=== PATIENT | female | born 1995 | race Caucasian/White ===

== ENCOUNTER 2016-12-06 06:48 | Emergency (ER) | payer OTHER ==
[~2016-12-06] VITALS: Ht 162.6 cm; Wt 72.7 kg
[~2016-12-06 06:48] MED LIST: ASCO500T8 PO; Docusate Sodium PO; FERR-74 PO; FLUC150T48 PO; Ibuprofen PO; NITR100 PO; Oxycodone/Acetaminophen PO
[2016-12-06 06:54] VITALS: BP 128/73; PULSE 81; RESP 16; O2SAT 100
[2016-12-06] MEDS ORDERED: Ondansetron 2 mg/mL 2 mL Inj IVPUSH PRN (07:10)
[2016-12-06] MEDS ORDERED: Ketorolac 15 mg/mL Inj IVPUSH ONE (07:10)
[2016-12-06] MEDS ORDERED: 0.9% Sodium Chloride 1,000 ML IV ONE (07:10)
[2016-12-06 07:22] LABS: BASOPHILS % (AUTO) 0.2 % (0-3); EOSINOPHILS % (AUTO) 0.6 % (0-5); MONOCYTES % (AUTO) 9.8 % (4-12); Mean Corpuscular Hemoglobin 28.5 pg (27.0-35.0); Mean Corpuscular Volume 86.8 fL (81-100); NEUTROPHILS % (AUTO) 67.6 % (40-74); Platelet Count 198 bil/L (150-400)
--- NOTE | 2016-12-06 07:43 | ED.REPORT ---
HPI-Abd Pain F Under 38 Date of Service Dec 06, 2016 ED Provider: Francesco Huerta DO History of Present Illness: Ms. Yazmin Hughes is a pleasant 21-year-old lady with a past medical history significant for section 2 years ago, healthy and currently taking no medications, who presents to [facility] emergency Department with a 4 hour acute onset of severe 10 out of 10 sharp constant flank pain bilaterally that extends into her abdomen as well as associated chills. She reports a 2-1/2 day history of dysuria and urinary urgency and hesitancy and one-day history of mild hematuria. She denies fever, chest pain, shortness of breath, diarrhea, and abnormal vaginal discharge. She reports chills, nausea, bilateral flank pain, abdominal pain, dysuria, hematuria, bloating and mild constipation. She denies history of renal stones, and reports several episodes of bladder infections. Of note Ms. Hughes has been trying to conceive and reports significant pain and tenderness during intercourse for an unspecified amount of time, which she claims to just benefit because she wants to conceive, she has been off Depo-Provera for 3 months, and her date of last menstrual cycle was 10 days ago with heavier flow than usual. She is currently moved [facility] 6 months ago and currently does not have an [facility] physician that she sees, she had made an appointment last week but her physician canceled. Nursing Notes Stated Complaint: POSS KIDNEY STONE Chief Complaint: Female Abdominal Pain Nursing Notes Reviewed: Yes Allergies: Coded Allergies: No Known Allergies (Verified Allergy, Unknown, 02/20/16) Scheduled ([Docusate Sodium]) 100 MG CAPSULE 100 MG PO BID Ascorbic Acid (Vitamin C) 500 Mg Tablet 500 MG PO DAILYWM Cephalexin (Cephalexin) 500 Mg Capsule 500 MG PO BID Doxycycline Hyclate (Doxycycline Hyclate) 100 Mg Capsule 100 MG PO BID Ferrous Sulfate (Feosol) 325 Mg Tablet 325 MG PO DAILY Fluconazole (Diflucan) 150 Mg Tablet 150 MG PO ONCE Nitrofurantoin Monohyd/M-Cryst (MacroBid) 100 Mg Capsule 100 MG PO BID Scheduled PRN ([Oxycodone/Acetaminophen]) 1 TAB TABLET 1-2 TAB PO Q4-6H PRN PRN For Pain ([Ibuprofen]) 600 MG TABLET 800 MG PO Q8 PRN PRN For Pain General Time Seen by MD: 07:15 Chief Complaint Abdominal pain, Constipation, Dysuria, Flank pain right, Flank pain left, Nausea , Pelvic pain Past Medical History Past Medical History She denies any health problems Not on any medications Past Surgical History Reports: Smoking History Never Smoker Social History Alcohol Use: "Social" Drug Use: Denies drug use Ambulatory Status Independent Review of Systems Review of Systems Note: A comprehensive review of systems was conducted with the patient and found to be negative except as above in the History of Present Illness. Physical Exam Physical Exam Notes: General: Young lady appearing of stated age sitting in bed grimacing in pain in acute distress. well-developed, well-nourished, appropriately interactive HEENT: Normocephalic, atraumatic. External ears without defect. Pupils equal, round, and reactive to light and accommodation. Anicteric sclerae, moist conjunctivae, and no lid lag. Oropharynx free of erythema and cobble stoning with moist mucosa. Neck: Supple with full range of motion. No jugular venous distension. No bruits. No lymphadenopathy or thyromegaly. Cardiovascular: Regular rate and rhythm with no murmurs, rubs, or gallops appreciated Pulmonary: Clear to auscultation bilaterally with no crackles, wheezes, or rhonchi. Normal respiratory effort with no use of accessory muscles. Abdomen: Bowel tones present. Soft, very mildly tender to palpation, nondistended. No hepatosplenomegaly or masses appreciated. Extremities: No clubbing, cyanosis, edema, or lymphadenopathy appreciated. Skin: Normal temperature, turgor, and texture; no rash, ulcers, or subcutaneous nodules appreciated. Musculoskeletal: Costovertebral angle tenderness to palpation bilaterally with positive Myron punch bilaterally. Neurological: Cranial nerves grossly intact. Normal muscle strength, tone, and bulk. Reflexes, coordination, and sensory function within normal limits. No known gait impairment. Psychiatric: Normal mood and affect. Alert and oriented to person, place, and time. Initial Vital Signs Vital Signs (First) Date Time Temp Pulse Resp B/P Pulse Ox O2 Delivery O2 Flow Rate FiO2 12/06/16 06:54 36.5 81 16 128/73 100 Room Air Interpretation & Diagnostics Lab Results Interpretation Result Diagram: 12/06/16 0710 12/06/16 0710 Test 12/06/16 06:50 12/06/16 07:10 Urine Color Yellow (YELLOW) Urine Appearance Slightly cloudy Urine pH 6.0 (5.0-8.0) Urine Specific [place] 1.025 (1.003-1.035) Urine Protein 100mg/dL (NEG,TRACE) Urine Glucose (UA) Negativemg/dL (NEGATIVE) Urine Ketones Negativemg/dL (NEGATIVE) Urine Occult Blood Large (NEGATIVE) Urine Nitrite Positive (NEGATIVE) Urine Bilirubin Negative (NEGATIVE) Urine Urobilinogen Normalmg/dL (NORMAL) Urine Leukocyte Esterase Moderate (NEGATIVE) Urine RBC 0-2/hpf (0-2) Urine WBC >50/hpf (0-5) Urine Epithelial Cells Occasional/hpf (NONE-MOD) Urine Crystals None seen (NONE SEEN) Urine Bacteria Moderate/hpf (NONE-FEW) Urine Hyaline Casts None/lpf (NONE) Urine Granular Casts None seen (NONE SEEN) Urine Waxy Casts None seen (NONE SEEN) Urine Red Blood Cell Casts None seen (NONE SEEN) Urine White Blood Cell Casts None seen (NONE SEEN) Urine Mucus None seen (None Seen) Urine Trichomonas None seen (NONE SEEN) Urine Yeast None (NONE SEEN) Urinalysis Comment None Urine Culture Reflexed Indicated Hold Urine Received (Received) White Blood Count 10.0th/mm3 (3.8-10.1) Red Blood Count 4.56mil/mm3 (3.90-5.20) Hemoglobin 13.0g/dL (12.0-15.6) Hematocrit 39.6% (35.0-46.0) Mean Corpuscular Volume 86.8fL (81-100) Mean Corpuscular Hemoglobin 28.5pg (27.0-35.0) Mean Corpuscular Hemoglobin Concent 32.8% (32.0-37.0) Red Cell Distribution Width 13.9% (12.3-15.4) Platelet Count 198bil/L (150-400) Neutrophils (%) (Auto) 67.6% (40-74) Lymphocytes (%) (Auto) 21.6% (14-46) Monocytes (%) (Auto) 9.8% (4-12) Eosinophils (%) (Auto) 0.6% (0-5) Basophils (%) (Auto) 0.2% (0-3) Sodium Level 140mEq/L (134-144) Potassium Level 4.3mEq/L (3.5-5.2) Chloride Level 106mEq/L (97-108) Carbon Dioxide Level 22mmol/L (18-29) Blood Urea Nitrogen 9mg/dL (6-20) Creatinine 0.71mg/dL (0.57-1.00) Estimat Glomerular Filtration Rate 146mL/min (>59) Glucose Level 93mg/dL (60-99) Calcium Level 9.2mg/dL (8.5-10.1) Total Bilirubin 0.9mg/dL (0.0-1.2) Aspartate Amino Transf (AST/SGOT) 29U/L (0-50) Alanine Aminotransferase (ALT/SGPT) 31U/L (0-32) Alkaline Phosphatase 68U/L (25-150) Total Protein 7.2g/dL (6.4-8.4) Albumin 4.2g/dL (3.4-5.0) Hold [place] Top Tube Received (Received) Re-Eval/Medical Decision Med Decision/Clinical Course Med Decision/Clinical Course: Ms. Yazmin Hughes is a pleasant 21-year-old lady with a past medical history significant for section 2 years ago, healthy and currently taking no medications, who presents to [facility] emergency Department with a 4 hour acute onset of severe 10 out of 10 sharp constant flank pain bilaterally that extends into her abdomen as well as associated chills. Differential diagnosis includes nephrolithiasis, pyelonephritis, cystitis, ovarian torsion, pelvic inflammatory disease, ectopic , GI tract obstruction. Patient's initial urine dip showed nitrites and large blood as well as a negative test. We have ordered a CBC and CMP to check for any inflammatory markers as well as a urinalysis with reflex culture. She was given 15 mg IV Toradol once and 4 mg IV Zofran every 4 hours as needed as well as 1 L bolus normal saline. A CT KUB was ordered and was negative for nephrolithiasis however showed prominent bladder wall thickening and adjacent inflammatory fat stranding as well as a possible adnexal cyst. Pelvic exam was positive for significant cervical wall motion tenderness and adnexal tenderness on the left, a wet mount prep was taken and showed only white blood cell cells present. Transvaginal pelvic ultrasound was ordered and official read is Ovarian cyst and not a Tubo-ovarian abscess. She will need close follow-up by sunglass clip attacher as an outpatient. We will send her home with by mouth doxycycline and PO Keflex for UTI. Discharge & Departure Shift Change Sign-Out Discussed Complaint(s): Yes Laboratory Evaluation: Lab evaluation discussed Imaging Studies: Imaging discussed Response to Therapy: Improved Primary Impression: Urinary tract infection Additional Impressions: Constipation Abdominal pain Dysuria Ovarian cyst Disposition: Home Discharge Condition All VS Reviewed: Yes Condition: Stable Patient Instructions: Ovarian Cyst (ED), Urinary Tract Infection in Women (DC) Additional Instructions: During you visit to [facility] Emergency Department we obtained blood work for infectious markers, hemoglobin levels, electrolytes, urine sample, and a wet mount from your pelvic exam. We obtained high resolution imaging of your abdomen and pelvis, which did not show kidney stones or urinary obstruction. Your other lab values were within normal limits. Your imaging showed bladder thickening indicative of bladder infections, and a moderate sized right ovarian cyst. Your urine sample showed a urinary tract infection. We will send you home with - Antibiotics (100 mg twice a day doxycycline for 7 days, and cephalexin 500 mg twice a day for 10 days) Do not hesitate to call emergency services or your primary care physician if you experience any of the following. -High unrelenting fevers. -Severe abdominal pain and severe pelvic tenderness. -Bloody urine or stools. -Burning with urination that does seem to improve during the course of antibiotics. -Uncontrolled vomiting. -Syncope or loss of consciousness. -Chest pain or severe shortness of breath. Follow-up very closely and sunglass clip attacher in [place] within 1 weeks time. Follow up with your primary care physician in 1-2 weeks time following your emergency department visit for medication checks and general well-being. Referrals: NOPCP (PCP) Attending Statment The patient was seen and examined together with Dr. Jaime on 12/06/16 and I have added additional information to the note above LORETTA JAIME DO Dec 06, 2016 07:43 Francesco Huerta DO Dec 06, 2016 15:00
[2016-12-06] MEDS ORDERED: cefTRIAXone Inj 2 GM in IV Premix 1 EACH IV ONE ×2 (07:45→08:35)
[2016-12-06 08:05] LABS: APPEARANCE,URINE SLIGHTLY CLOUDY (CLEAR,HAZY); COLOR,URINE YELLOW (YELLOW); OCCULT BLOOD,URINE LARGE (NEGATIVE); UROBILINOGEN,URINE NORMAL (NORMAL)
--- NOTE | 2016-12-06 08:18 | DRSVH ---
PROCEDURE: CT KUB ([id number]) INDICATIONS: Bilateral CVA tenderness with painful urination TECHNIQUE: Noncontrast 5 mm thick sections acquired from the diaphragms to the symphysis. 5 mm thick coronal an d sagittal reformats were then performed. For radiation dose reduction, the following was used: aut omated exposure control, adjustment of mA and/or kV according to patient size. COMPARISON: [facility], , SPINE LUMB 2 OR 3VW , 006, 12:29. FINDINGS: Image quality: Excellent. Lung bases: Lung bases are clear. Heart size is normal. Urinary system: Both kidneys are normal in size. No kidney stones. No hydronephrosis or perinephri c fat stranding. Both ureters appear non-dilated throughout their expected courses. Multiple calcif ications seen in the left pelvis in the region of the distal left ureter although intraluminal locati on cannot be entirely excluded. This is thought to be less likely given the absence of dilatation or periureteral stranding Bladder wall is thickened although the bladder is decompressed and this limits evaluation was suspici ous for cystitis. There is also surrounding inflammatory fat stranding. No calcified bladder stones. Other solid organs: Liver and spleen are normal in size. Gallbladder negative. Pancreas is normal in contours. No adrenal nodules. Peritoneum and bowel: Unenhanced bowel loops demonstrate normal wall thickness and caliber. No free fluid or air. Rectum grossly unremarkable. Normal appendix. Nodes and vessels: No retroperitoneal or mesenteric adenopathy by size criteria. Aorta and inferior vena cava are normal in caliber. Abdominal wall: No ventral hernias. Pelvis: No free pelvic fluid. No inguinal hernias or adenopathy. Bones: No suspicious bony lesions. No vertebral body compression fractures. IMPRESSION: Prominent bladder wall thickening and adjacent inflammatory fat stranding suggestive of cystitis (sta tistically infectious). Please correlate clinically and with urinalysis data. Left pelvic calcifications most likely phleboliths as discussed above. If further assessment for intr aureteral location is clinically necessary, CT IVP could be considered. Elsewhere no urolithiasis nor evidence of urinary obstruction Normal appendix. Dictated by: Anders Kirby M.D. on 12/06/2016 at 8:16 Approved by: Anders Kirby M.D. on 12/06/2016 at 8:16
[2016-12-06] MEDS ORDERED: cefTRIAXone Inj 2,000 MG in IV Premix 1 EACH IV ONE (08:35)
[2016-12-06] MEDS ORDERED: Doxycycline Inj 100 MG in Dextrose 5% Minibag Plus 100 ML IV ONE (09:20)
[2016-12-06 12:53] VITALS: BP 98/61; PULSE 70; RESP 15; O2SAT 100
[2016-12-06] MEDS ORDERED: DOXY100C2 PO (13:36)
[2016-12-06] MEDS ORDERED: CEPH500C PO (13:36)
[2016-12-06 13:57] VITALS: BP 98/61; PULSE 70; RESP 15; O2SAT 100
--- NOTE | 2016-12-06 15:18 | DRSVH ---
PROCEDURE: US PELVIC SONOGRAM + TRANSVAGINAL SONOGRAM INDICATIONS: Cervical motion tenderness and poss PID TECHNIQUE: Real-time scanning was performed of the pelvic organs, with image documentation. Additional endovagi nal scanning was necessary due to incomplete visualization of the adnexal and endometrial structures by transabdominal scanning. COMPARISON: None. FINDINGS: (orthogonal measurements) Uterus size: 9.28 cm, 4.86 cm, 6.36 cm Endometrium thickness: 3.10 mm Right ovary size: 3.38 cm, 4.63 cm, 3.27 cm Left ovary size: 3.07 cm, 1.80 cm, 1.71 cm Transabdominal scanning: Limited scanning through the kidneys shows no hydronephrosis. No pathologi c free abdominal or pelvic fluid. Endovaginal scanning: Uterus: Uterus is normal in size and appearance. Endometrium is within normal physiologic limits. Ovaries: Simple cyst involving right ovary measuring 3.3 x 1.7 x 2.6 cm. Normal left ovary. IMPRESSION: Simple right ovarian cyst. Dictated by: Nick Heard [facility] Interpreted: Jaclyn Otto MD on 12/06/2016 at 15:18 Transcribed by: TRENT on 12/06/2016 at 15:18 Approved by: Jaclyn Otto MD, PhD on 12/06/2016 at 16:56
== END 2016-12-06 13:58 | disposition home or self-care (01) ==
LOC: SED 06:48
DX: N39.0 Urinary tract infection, site not specified (principal); K59.00 Constipation, unspecified; N83.209 Unspecified ovarian cyst, unspecified side; B96.20 Unspecified Escherichia coli [E. coli] as the cause of diseases classified elsewhere; Z98.890 Other specified postprocedural states; Z87.440 Personal history of urinary (tract) infections
CPT/HCPCS: 36415; 74176; 76830; 76856; 80053; 81000; 81025; 85025; 87086; 87088; 87186; 87210; 87491; 87591; 96361; 96365; 96375; 99285; J0696; J1885; J2405; J7030